=== PATIENT | male | born 1945 | race Caucasian/White ===

== ENCOUNTER 2019-03-12 12:33 | Emergency (ER) | payer MEDICARE, BC ==
[2019-03-12 12:48] VITALS: BP 124/64
--- NOTE | 2019-03-12 13:00 | UC ---
Lower Extremity/Ankle HPI - HPI Summary HPI Summary: Pt presents for evaluation of his RLE. Pt states tuesday noted some discomfort just above ankle. mild TTP. Pt states develope cord-like discomfort to the area. since this time has ecchymosis and edema from area. mild TTP. no calf paion. no paresthesia. no h.o DVT. no tobacco use no anticoagulants meds reviewed - History of Current Complaint Chief Complaint: UCLowerExtremity Stated Complaint: SWOLLEN RT LOWER LEG Time Seen by Provider: 03/12/19 12:59 Hx Obtained From: Patient Onset/Duration: Gradual Onset Severity Initially: Mild Pain Intensity: 2 - Allergies/Home Medications Allergies/Adverse Reactions: Allergies Allergy/AdvReac Type Severity Reaction Status Date / Time No Known Allergies Allergy Verified 03/12/19 13:47 Home Medications: Home Medications Ubidecarenone [Coq-10 Tr] 200 mg PO 03/12/19 [History] PMH/Surg Hx/FS Hx/Imm Hx Previously Healthy: Yes - Surgical History Surgical History: Yes Surgery Procedure, Year, and Place: INGUINAL HERNIA 1995. DISSECTED AORTA 2007 AT [facility]. ABDOMINAL AORTIC ANEURYSM PT HAS IMPLANT CARD 08/26-12/22-SAFE FOR 1.5 ONLY. THYROIDECTOMY 05/2014 - Family History Known Family History: Positive: Non-Contributory - Social History Lives: With Family Alcohol Use: Occasionally Substance Use Type: None Smoking Status (MU): Former Smoker Review of Systems All Other Systems Reviewed And Are Negative: Yes Constitutional: Positive: Negative Skin: Positive: Other - Left ankle edema, ecchymosis Physical Exam - Summary Physical Exam Summary: Vital Signs Reviewed: Yes low grade temp A+Ox3, no distress, Eyes: Conjunctiva Clear ENT: Hearing grossly normal Neck: Positive: Supple Respiratory: Positive: No respiratory distress, No accessory muscle use + CTA throughout no w/r Cardiovascular: RRR nl s1, s2 no m/r CBT <2 sec CBT < 2 se 2+ PT, DP pulses Musculoskeletal Exam: + SLE + flex/ext knee, ankle Left medial ankle, cord like mild discmofrt 2cm just superior to medial malleolus, pt with edema and ecchymosis extending inferior to malleolus extending to posterior ankle Neurological: Positive: Alert, + sensation throughout Psychological: Positive: Normal Response To Family Skin: Positive: no rash, see MS no open wound Triage Information Reviewed: Yes Vital Signs: Initial Vital Signs Temp 98.3 F 03/12/19 12:44 Pulse 95 03/12/19 12:44 Resp 18 03/12/19 12:44 BP 124/64 03/12/19 12:44 Pulse Ox 98 03/12/19 12:44 Lower Extremity Course/Dx - Course Course Of Treatment: Pt with "spontaneous" bruising to left medial ankle and cord-like tenderness no calf pain suspect superficial vein pt planning 6 hours car trip on Tue recommend fo to ED for further eval - likely US pt and spouse in agreeement d/w Opal Salvador in ED - will be able to get US today - Differential Dx/Diagnosis Provider Diagnosis: Left ankle swelling, Ankle bruise Discharge - Sign-Out/Discharge Documenting (check all that apply): Patient Departure All imaging exams completed and their final reports reviewed: No Studies - Discharge Plan Condition: Stable Disposition: HOME-RECOMMEND TO ED Patient Education Materials: Leg Edema (ED) Referrals: Nuris Whitley MD [Primary Care Provider] - Additional Instructions: The doctor that evaluated you today thinks that you need additional testing that can be completed the emergency department. It is recommended that you go directly to emergency department for further evaluation. This evaluation may include blood work or imaging. This testing will be directed and decided by the provider that evaluate you at the emergency department. If pain becomes worse, you feel lightheaded, you have uncontrolled vomiting, or you have any other concerns while you are being driven to emergency department as recommended to pullover and contact 911. - Billing Disposition and Condition Condition: STABLE Disposition: Home-Recommend to ED
== END 2019-03-12 13:23 | disposition home health service (06) ==
LOC: UCEAST 12:33
DX: S90.02XA Contusion of left ankle, initial encounter (principal); I80.01 Phlebitis and thrombophlebitis of superficial vessels of right lower extremity; M79.89 Other specified soft tissue disorders; Z87.891 Personal history of nicotine dependence; X58.XXXA Exposure to other specified factors, initial encounter; Y92.9 Unspecified place or not applicable
CPT/HCPCS: 99212; G0463

== ENCOUNTER 2019-03-12 13:42 | Emergency (ER) | payer MEDICARE, BC ==
--- NOTE | 2019-03-12 15:51 | UC ---
Lower Extremity/Ankle HPI - HPI Summary HPI Summary: Patient is a 73-year-old male who presents to the ED with right medial lower extremity ecchymosis and erythema which is in a linear marking. He is endorsing mild amount of pain to this area. No history of DVT. He was sent over by urgent care to rule out DVT. He states he has a long trip planned and wants to be reassured he does not have a blood clot. He does not smoke. No recent travel. He denies any pain to the calf or the knee. Denies any pain to the ankle. Pain is noted directly over this area only on palpation. At rest patient feels well. Denies any pain with ambulation and any restrictions with movement. - History of Current Complaint Chief Complaint: EDExtremityLower Stated Complaint: RT LEG PAIN PER PT/ US PER CC Time Seen by Provider: 03/12/19 14:03 Hx Obtained From: Patient Onset/Duration: Sudden Onset Severity Initially: Moderate Severity Currently: Moderate Pain Intensity: 2 Pain Scale Used: 0-10 Numeric Aggravating Factor(s): Nothing Alleviating Factor(s): Rest, Elevation Able to Bear Weight: Yes - Risk Factors Gout Risk Factors: Negative DVT Risk Factors: Negative Septic Arthritis Risk Factor: Negative - Allergies/Home Medications Allergies/Adverse Reactions: Allergies Allergy/AdvReac Type Severity Reaction Status Date / Time No Known Allergies Allergy Verified 03/12/19 13:47 PMH/Surg Hx/FS Hx/Imm Hx Previously Healthy: Yes - Surgical History Surgical History: Yes Surgery Procedure, Year, and Place: INGUINAL HERNIA 1995. DISSECTED AORTA 2007 AT [place]. ABDOMINAL AORTIC ANEURYSM PT HAS IMPLANT CARD 08/26-12/22-SAFE FOR 1.5 ONLY. THYROIDECTOMY 05/2014 - Social History Alcohol Use: Occasionally Substance Use Type: None Smoking Status (MU): Former Smoker Review of Systems All Other Systems Reviewed And Are Negative: Yes Constitutional: Positive: Negative Skin: Positive: Rash, Bruising Eyes: Positive: Negative Respiratory: Positive: Negative Cardiovascular: Positive: Negative Motor: Positive: Negative Neurovascular: Positive: Negative Psychological: Positive: Negative Is Patient Immunocompromised?: Yes Physical Exam Triage Information Reviewed: Yes Appearance: Well-Appearing, Well-Nourished Vital Signs: Initial Vital Signs Temp 98.1 F 03/12/19 13:43 Pulse 51 05/27/19 13:43 Resp 19 03/12/19 13:43 BP 147/67 03/12/19 13:43 Pulse Ox 97 03/12/19 13:43 Vital Signs Reviewed: Yes Neck exam: Normal Respiratory Exam: Normal Respiratory: Positive: Chest non-tender Cardiovascular Exam: Normal Musculoskeletal Exam: Normal Musculoskeletal: Positive: Strength Intact Psychological: Positive: Age Appropriate Behavior Skin: Positive: Other - ecchymosis/erythematous area to the R medial lower extremity measuring 2cm in length Lower Extremity Course/Dx - Course Course Of Treatment: During the course of treatment, the patient is evaluated for medial right lower extremity ecchymosis and erythema. This does not appear to be infected. No evidence of DVT. Ultrasound to rule out DVT. This was negative. Superficial thrombophlebitis to this area. He is given instructions for ibuprofen, cool and warm packs. - Differential Dx/Diagnosis Provider Diagnosis: Superficial thrombophlebitis Discharge - Sign-Out/Discharge Documenting (check all that apply): Patient Departure Patient Received Moderate/Deep Sedation with Procedure: No - Discharge Plan Condition: Stable Disposition: HOME Patient Education Materials: Superficial Thrombophlebitis (ED) Referrals: Nuris Whitley MD [Primary Care Provider] - Additional Instructions: Treatment consists of extremity elevation (ie, waist level), warm or cool compresses, nonsteroidal anti-inflammatory drugs (NSAIDs), and possibly compression therapy if you continue to have pain. Remain ambulatory Return for worsening symptoms - Billing Disposition and Condition Condition: STABLE Disposition: Home
[2019-03-12 15:52] VITALS: BP 146/68
== END 2019-03-12 15:51 | disposition home or self-care (01) ==
LOC: ED 13:42
DX: I80.01 Phlebitis and thrombophlebitis of superficial vessels of right lower extremity (principal); Z87.891 Personal history of nicotine dependence
CPT/HCPCS: 99282